=== PATIENT | male | born 1980 | race American Indian/Alaskan Native ===

== ENCOUNTER 2021-04-29 10:16 | Emergency (ER) | payer BC ==
--- NOTE | 2021-04-29 11:06 | XRay Report ---
CHEST 2 VIEWS INDICATION: chest pain. COMPARISON: none FINDINGS: Support devices: None. Heart: Within normal limits. Lungs/pleura: No acute air space or interstitial disease. No pneumothorax. Additional findings: None. IMPRESSION: No acute findings. Signer Name: Peter Roberson Jr, MD Signed: 04/29/2021 11:01 AM Workstation Name: [id number]
[2021-04-29 11:19] LABS: Hemoglobin 14.6 gm/dl (11.8-15.2); Mean Corpuscular HGB Conc 33 % (32-34); Mean Corpuscular Volume 89 fl (84-94); Platelet Count 234 K/mm3 (140-440); Red Blood Count 4.96 M/mm3 (3.65-5.03); Red Cell Distribution Width 13.2 % (13.2-15.2)
--- NOTE | 2021-04-29 11:38 | Emergency Department Report ---
ED Chest Pain HPI - General Chief Complaint: Chest Pain Stated Complaint: CHEST PAIN Time Seen by Provider: 04/29/21 10:38 Source: patient Mode of arrival: Ambulatory Limitations: No Limitations - History of Present Illness Initial Comments: 31-year-old -[place] male patient presents with complaints of left-sided chest pain and racing heart upon waking this morning. Patient states he drank alcohol excessively yesterday and laid down right after drinking. He denies regular alcohol abuse. He states upon waking he had a sharp pain in his left- sided chest and began to feel his heart rate increased and noticed it was around 120 bpm on his apple watch. Past medical history includes anxiety and panic attacks, however patient states this did not feel like a panic attack. He denies any other medical problems, family heart history, or personal heart history. Patient also denies any shortness of breath, cough, leg pain/swelling, recent long travel, history DVT/PE/cancer. He rates his pain as 0/10 severity at current. He states the pain did initially radiate into his left arm. - Related Data Allergies Allergy/AdvReac Type Severity Reaction Status Date / Time No Known Allergies Allergy Unverified 04/29/21 10:16 Heart Score - HEART Score History: Slightly suspicious EKG: Normal Age: < 45 Risk factors: 1-2 risk factors Troponin: < normal limit HEART Score: 1 - EKG Read Time Time EKG Completed: 10:50 EKG Read Time: 10:55 - Critical Actions Critical Actions: 0-3 pts:0.9-1.7%risk of adverse cardiac event.Candidate for discharge ED Review of Systems ROS: Stated complaint: CHEST PAIN Other details as noted in HPI Constitutional: denies: chills, fever Respiratory: see HPI Cardiovascular: as per HPI. denies: edema, syncope Gastrointestinal: denies: abdominal pain, nausea, vomiting Skin: denies: rash, lesions, change in color Neurological: denies: headache ED Past Medical Hx - Past Medical History Additional medical history: ANXIETY - Surgical History Past Surgical History?: No ED Physical Exam - General Limitations: No Limitations General appearance: alert, in no apparent distress - Head Head exam: Present: atraumatic, normocephalic - Eye Eye exam: Present: normal appearance. Absent: scleral icterus - Neck Neck exam: Present: normal inspection - Respiratory Respiratory exam: Present: normal lung sounds bilaterally. Absent: respiratory distress, chest wall tenderness - Cardiovascular Cardiovascular Exam: Present: regular rate, normal rhythm, normal heart sounds - GI/Abdominal GI/Abdominal exam: Present: soft. Absent: tenderness - Extremities Exam Extremities exam: Absent: calf tenderness (No swelling or pain noted in legs bilaterally) - Neurological Exam Neurological exam: Present: alert, oriented X3 - Psychiatric Psychiatric exam: Present: normal affect, normal mood - Skin Skin exam: Present: warm, dry, intact, normal color. Absent: rash ED Course Vital Signs 04/29/21 04/29/21 10:21 12:43 Temperature 98.7 F 97.7 F Pulse Rate 72 70 Respiratory 20 16 Rate Blood Pressure 149/100 Blood Pressure 139/87 [Right] O2 Sat by Pulse 100 100 Oximetry ED Medical Decision Making - Lab Data Result diagrams: 04/29/21 10:47 04/29/21 10:47 Lab Results 04/29/21 04/29/21 Range/Units 10:47 10:47 WBC 4.7 (4.5-11.0) K/mm3 RBC 4.96 (3.65-5.03) M/mm3 Hgb 14.6 (11.8-15.2) gm/dl Hct 44.0 (35.5-45.6) % MCV 89 (84-94) fl MCH 30 (28-32) pg MCHC 33 (32-34) % RDW 13.2 (13.2-15.2) % Plt Count 234 (140-440) K/mm3 Lymph % (Auto) Transit Driver Add Manual Diff Complete Total Counted 100 Seg Neutrophils % Transit Driver Seg Neuts % (Manual) 26.0 L (40.0-70.0) % Band Neutrophils % 0 % Lymphocytes % (Manual) 59.0 H (13.4-35.0) % Reactive Lymphs % (Man) 0 % Monocytes % (Manual) 10.0 H (0.0-7.3) % Eosinophils % (Manual) 5.0 H (0.0-4.3) % Basophils % (Manual) 0 (0.0-1.8) % Metamyelocytes % 0 % Myelocytes % 0 % Promyelocytes % 0 % Blast Cells % 0 % Nucleated RBC % Not Reportable Seg Neutrophils # Man 1.2 L (1.8-7.7) K/mm3 Band Neutrophils # 0.0 K/mm3 Lymphocytes # (Manual) 2.8 (1.2-5.4) K/mm3 Abs React Lymphs (Man) 0.0 K/mm3 Monocytes # (Manual) 0.5 (0.0-0.8) K/mm3 Eosinophils # (Manual) 0.2 (0.0-0.4) K/mm3 Basophils # (Manual) 0.0 (0.0-0.1) K/mm3 Metamyelocytes # 0.0 K/mm3 Myelocytes # 0.0 K/mm3 Promyelocytes # 0.0 K/mm3 Blast Cells # 0.0 K/mm3 WBC Morphology Not Reportable Hypersegmented Neuts Not Reportable Hyposegmented Neuts Not Reportable Hypogranular Neuts Not Reportable Smudge Cells Not Reportable Toxic Granulation Not Reportable Toxic Vacuolation Not Reportable Dohle Bodies Not Reportable Pelger-Huet Anomaly Not Reportable Halie Rods Not Reportable Platelet Estimate Consistent w auto Clumped Platelets Not Reportable Plt Clumps, EDTA Not Reportable Large Platelets Not Reportable Giant Platelets Few Platelet Satelliting Not Reportable Plt Morphology Comment Not Reportable RBC Morphology Normal Dimorphic RBCs Not Reportable Polychromasia Not Reportable Hypochromasia Not Reportable Poikilocytosis Not Reportable Anisocytosis Not Reportable Microcytosis Not Reportable Macrocytosis Not Reportable Spherocytes Not Reportable Pappenheimer Bodies Not Reportable Sickle Cells Not Reportable Target Cells Not Reportable Tear Drop Cells Not Reportable Ovalocytes Not Reportable Helmet Cells Not Reportable Blancas-Roberts Bodies Not Reportable Deal Rings Not Reportable Keith Cells Not Reportable Bite Cells Not Reportable Crenated Cell Not Reportable Elliptocytes Not Reportable Acanthocytes (Spur) Not Reportable Rouleaux Not Reportable Hemoglobin C Crystals Not Reportable Schistocytes Not Reportable Malaria parasites Not Reportable Srini Bodies Not Reportable Hem Pathologist Commnt No Sodium 141 (137-145) mmol/L Potassium 3.6 (3.6-5.0) mmol/L Chloride 102.4 (98-107) mmol/L Carbon Dioxide 23 (22-30) mmol/L Anion Gap 19 mmol/L BUN 11 (9-20) mg/dL Creatinine 0.9 (0.8-1.3) mg/dL Estimated GFR > 60 ml/min BUN/Creatinine Ratio 12 % Glucose 123 H (75-100) mg/dL Calcium 9.5 (8.4-10.2) mg/dL Total Bilirubin < 0.20 (0.1-1.2) mg/dL AST 24 (5-40) units/L ALT 34 (7-56) units/L Alkaline Phosphatase 61 (35-129) units/L Troponin T < 0.010 (0.00-0.029) ng/mL Total Protein 7.3 (6.3-8.2) g/dL Albumin 4.2 (3.9-5) g/dL Albumin/Globulin Ratio 1.4 % - Radiology Data Radiology results: report reviewed CHEST 2 VIEWS INDICATION: chest pain. COMPARISON: none FINDINGS: Support devices: None. Heart: Within normal limits. Lungs/pleura: No acute air space or interstitial disease. No pneumothorax. Additional findings: None. IMPRESSION: No acute findings. - Medical Decision Making 31-year-old -[place] male patient presents with complaints of left-sided chest pain and racing heart upon waking this morning. Patient states he drank alcohol excessively yesterday and laid down right after drinking. He denies regular alcohol abuse. He states upon waking he had a sharp pain in his left- sided chest and began to feel his heart rate increased and noticed it was around 120 bpm on his apple watch. Past medical history includes anxiety and panic attacks, however patient states this did not feel like a panic attack. He denies any other medical problems, family heart history, or personal heart history. Patient also denies any shortness of breath, cough, leg pain/swelling, recent long travel, history DVT/PE/cancer. He rates his pain as 0/10 severity at current. He states the pain did initially radiate into his left arm. No acute abnormalities noted on EKG or chest x-ray. Some dehydration noted on labs without other acute abnormalities. Patient continues to deny any chest pain. Heart score = 1. perc score = 0. Given history, suspect gastritis as cause of pain. Blood pressure noted to be elevated. Patient denies prior history. Recommend follow-up with primary care within 2 days for blood pressure repeat and further evaluation and treatment of symptoms. Also recommend high water intake and avoidance of further alcohol use. He is otherwise well- appearing and stable for discharge home. Signs and symptoms that should prompt immediate return to the ED were discussed in detail with patient who verbalizes understand Critical care attestation.: If time is entered above; I have spent that time in minutes in the direct care of this critically ill patient, excluding procedure time. ED Disposition Clinical Impression: Other chest pain, Elevated blood pressure reading without diagnosis of hypertension Disposition: HOME / SELF CARE / HOMELESS Is pt being admited?: No Condition: Stable Instructions: Gastroesophageal Reflux Scan, Nonspecific Chest Pain, Adult, [id number] Referrals: [facility] [Provider Group] - 2-3 Days Forms: Work/School Release Form(ED)
[2021-04-29 11:48] LABS: Alanine Aminotransferase 34 units/L (7-56); Albumin 4.2 g/dL (3.9-5); BUN/Creatinine Ratio 12; Blood Urea Nitrogen 11 mg/dL (9-20); Calcium 9.5 mg/dL (8.4-10.2); Hemolysis Index 4
[2021-04-29 11:58] LABS: Basophils % (Manual) 0 % (0.0-1.8); Total Cells Counted 100
[2021-04-29 11:59] LABS: Giant Platelets Few; Platelet Estimate Consistent w Auto; RBC Morphology Normal
[2021-04-29 12:45] VITALS: BP 139/87
== END 2021-04-29 12:47 | disposition home or self-care (01) ==
LOC: EDBD 10:16 → ED 10:16
DX: R07.89 Other chest pain (principal); R03.0 Elevated blood-pressure reading, without diagnosis of hypertension
CPT/HCPCS: 36415; 71046; 80053; 84484; 85007; 85025; 93005; 99283

== ENCOUNTER 2021-07-24 07:12 | Emergency (ER) | payer BC ==
--- NOTE | 2021-07-24 08:40 | Emergency Department Report ---
ED General Adult HPI - General Chief complaint: Chest Pain Stated complaint: CHEST PAIN PUI?: No Time Seen by Provider: 07/24/21 07:50 Source: patient Mode of arrival: Ambulatory Limitations: No Limitations - History of Present Illness Severity scale (0 -10): 6 - Related Data Allergies Allergy/AdvReac Type Severity Reaction Status Date / Time No Known Allergies Allergy Unverified 04/29/21 10:16 ED Review of Systems ROS: Stated complaint: CHEST PAIN Other details as noted in HPI Comment: All other systems reviewed and negative ED Past Medical Hx - Past Medical History Previous Medical History?: No Additional medical history: ANXIETY - Surgical History Past Surgical History?: No - Family History Family history: no significant - Social History Substance Use Type: Alcohol ED Physical Exam - General Limitations: No Limitations General appearance: alert, in no apparent distress - Head Head exam: Present: atraumatic, normocephalic - Eye Eye exam: Present: normal appearance - ENT ENT exam: Present: mucous membranes moist - Neck Neck exam: Present: normal inspection - Respiratory Respiratory exam: Present: normal lung sounds bilaterally. Absent: respiratory distress - Cardiovascular Cardiovascular Exam: Present: regular rate, normal rhythm. Absent: systolic murmur, diastolic murmur, rubs, gallop - GI/Abdominal GI/Abdominal exam: Present: soft, normal bowel sounds - Rectal Rectal exam: Present: deferred - Extremities Exam Extremities exam: Present: normal inspection - Back Exam Back exam: Present: normal inspection - Neurological Exam Neurological exam: Present: alert, oriented X3 - Psychiatric Psychiatric exam: Present: normal affect, normal mood - Skin Skin exam: Present: warm, dry, intact, normal color. Absent: rash ED Course Vital Signs 07/24/21 07:23 Temperature 98.3 F Pulse Rate 62 Respiratory 18 Rate Blood Pressure 147/82 [Right] O2 Sat by Pulse 100 Oximetry ED Medical Decision Making - EKG Data EKG shows normal: sinus rhythm Rate: normal - EKG Data When compared to previous EKG there are: no significant change Interpretation: no acute changes - Medical Decision Making Vital Signs 07/24/21 07:23 Temperature 98.3 F Pulse Rate 62 Respiratory 18 Rate Blood Pressure 147/82 [Right] O2 Sat by Pulse 100 Oximetry - Differential Diagnosis anxiety/noncardiac cp/uri Critical care attestation.: If time is entered above; I have spent that time in minutes in the direct care of this critically ill patient, excluding procedure time. ED Disposition Clinical Impression: Non-cardiac chest pain Disposition: 01 HOME / SELF CARE / HOMELESS Is pt being admited?: No Does the pt Need Aspirin: No Condition: Stable Instructions: Nonspecific Chest Pain, Adult Additional Instructions: follow up with pcp Referrals: RADHA ISAAC MD [Staff Physician] - 3-5 Days Time of Disposition: 08:40
[2021-07-24 09:35] VITALS: BP 139/88
--- NOTE | 2021-07-25 20:17 | Electrocardiograph Report ---
[facility] Test Date: 2021-07-24 Test Time: 07:40:53 Pat Name: YARITZA JOHN Department: Room: Gender: M Seafood Packer: RONNIE : 1980 Requested By: KARLA ISBELL Order Number: [id number] Reading MD: Angelica Upton Measurements Intervals [place] Rate: 57 P: 53 DE: 182 QRS: 44 QRSD: 97 T: 44 QT: 463 QTc: 450 Interpretive Statements Sinus rhythm Nonspecific ST abnormality Compared to ECG 04/29/2021 10:36:51 No significant change Electronically Signed On 07-25-2021 20:17:13 EDT by Angelica Upton
== END 2021-07-24 09:30 | disposition home or self-care (01) ==
LOC: ED 07:12
DX: R07.9 Chest pain, unspecified (principal)
CPT/HCPCS: 93005; 99282